=== PATIENT | male | born 1945 | race Caucasian/White ===

== ENCOUNTER → 2021-06-12 | Outpatient (CLI) | payer MEDICARE ==
[~2021-06-12] MED LIST: DIOVAN PO; METOPROLOL PO
== END ==
LOC: MRI 09:02
PROVIDERS: ATTEND Family Medicine
DX: M51.17 Intervertebral disc disorders with radiculopathy, lumbosacral region (principal)
CPT/HCPCS: 72146; 72148

== ENCOUNTER → 2021-06-27 | Outpatient (CLI) | payer MEDICARE | LOC: NM 08:42 | PROVIDERS: ATTEND Family Medicine | DX: M89.9 Disorder of bone, unspecified (principal) | CPT/HCPCS: 78306; A9503; A9570 ==

== ENCOUNTER → 2021-07-13 | Day surgery (SDC) | payer MEDICARE ==
[2021-07-11 15:51] LABS: BASOPHILS % 0.5 % (0.0-1.0); EOSINOPHILS # (AUTO) 0.1 (0.0-0.4); EOSINOPHILS % 1.2 % (0.0-6.0); HEMATOCRIT 47.3 % (38.2-49.6); HEMOGLOBIN 16.3 g/dL (14.0-18.0); LYMPHOCYTES # (AUTO) 1.1 (1.0-3.2); LYMPHOCYTES % 18.6 % (18.0-39.1); MEAN CORPUSCULAR HEMOGLOBIN 33.3 pg (28-32); MEAN CORPUSCULAR HGB CONC 34.5 g/dL (31-35); MEAN CORPUSCULAR VOLUME 96.5 fL (81-99); MONOCYTES # (AUTO) 0.6 (0.2-0.8); MONOCYTES % 9.8 % (4.4-11.3); NEUTROPHILS # (AUTO) 4.1 (2.1-6.9); NEUTROPHILS % 69.7 % (38.7-80.0); PLATELET COUNT 163 x10e3/uL (140-360)
[2021-07-11 16:18] LABS: ALBUMIN 3.8 g/dL (3.5-5.0); ALBUMIN/GLOBULIN RATIO 1.1 (0.8-2.0); ANION GAP 13.4 mmol/L (8-16); CALCIUM 8.8 mg/dL (8.4-10.2); CREATININE, SERUM 0.77 mg/dL (0.72-1.25); POTASSIUM 4.4 mmol/L (3.5-5.1)
[~2021-07-13] MED LIST changes: +AMLODIPINE BESYL5 MG PO; +BUPIVACAINE 0.25% 30ML SDV ONE; +DEXAMETHASONE SOD PHOS INJ 4 MG/ML SDV ONE; +GLYCOPYRROLATE INJ 0.2 MG/ML VIAL ONE; +HYDRALAZINE HCL 20 MG/ML VIAL ONE; +LIDOCAINE 1% W/EPINEPHRINE 20 ML VIAL ONE; +LIDOCAINE HCL 2% LOCAL INJ 5 ML SDV VIAL INJ ONE; +LOSARTAN POTASS25 MG PO; +METOPROLOL SUCC50 MG PO; +NEOSTIGMINE 1 MG/ML 10ML VIAL ONE; +ONDANSETRON HCL INJ 2MG/ML 2ML 2 MG/ML VIAL ONE; +POVIDONE IODINE 0.05% 0.05 % ML PO ONE; +PROPOFOL IV EMULSION 10 MG/ML 20 ML VIAL ONE; +ROCURONIUM BROMIDE 10 MG/ML 5ML VIAL IV ONE; +SEVOFLURANE INHAL SOLN 250 ML PEN BTL ONE
[2021-07-13 11:05] VITALS: BP 147/87
== END | disposition home or self-care (01) ==
LOC: OR 06:20
PROVIDERS: ATTEND Surgery
DX: K40.90 Unilateral inguinal hernia, without obstruction or gangrene, not specified as recurrent (principal); I10 Essential (primary) hypertension; E78.5 Hyperlipidemia, unspecified; Z01.818 Encounter for other preprocedural examination; Z01.812 Encounter for preprocedural laboratory examination; Z20.822 Contact with and (suspected) exposure to COVID-19; Z87.891 Personal history of nicotine dependence
CPT/HCPCS: 36415; 49505; 71046; 80053; 85025; C1781; U0002; J0360; J1100; J2001; J2405; J2710